=== PATIENT | male | born 1970 | race Caucasian/White ===

== ENCOUNTER 2023-10-02 07:29 | Day surgery (SDC) | payer BC ==
[2023-09-30 11:23] VITALS: BMI 31.5
[2023-10-02] MEDS ORDERED: LIDOCAINE HCL/PF 2% SDV 5ML VIAL ONE (07:33)
[2023-10-02] MEDS ORDERED: PROPOFOL 160 ML ONE (07:34)
[2023-10-02 08:29] VITALS: PULSE 94; RESP 18; TEMP 98.4
[2023-10-02 11:59] VITALS: BP 146/78
== END 2023-10-02 08:59 | disposition home or self-care (01) ==
LOC: FASU-ENDO 07:29
PROVIDERS: ATTEND Internal Medicine Gastroenterology
PROC: 0DJD8ZZ Inspection of Lower Intestinal Tract, Via Natural or Artificial Opening Endoscopic (ICD-10-PCS; principal; 2023-10-02 08:10)
DX: Z12.11 Encounter for screening for malignant neoplasm of colon (principal)
CPT/HCPCS: 82962